=== PATIENT | female | born 1990 | race Caucasian/White ===

== ENCOUNTER → 2021-07-08 15:37 | Outpatient (CLI) | payer OTHER, SELFPAY ==
--- NOTE | 2021-07-08 15:41 | DI.MRI.S_ITS ---
PROCEDURE: MR CERVICAL SPINE WO CON INDICATIONS: ACUTE PAIN OF RIGHT SHOULDER TECHNIQUE: Noncontrast sagittal T1 spin echo and T2 fast spin echo, sagittal STIR, foraminal oblique sagittal T2 fast spin echo, and axial gradient echo or T2 fast spin echo through the cervical spine. COMPARISON: [facility], CR, XR CERVICAL SPINE WITH OBLIQUES, 06/24/2021, 13:02. FINDINGS: Image quality: Excellent. Alignment and Curvature: There is loss of normal cervical lordosis. Bone Marrow: Marrow demonstrates normal overall signal. There is mild reactive signal within the endplates adjacent to the C5-C6 intervertebral disc. Spinal Cord: Visualized spinal cord has normal size and signal. No cerebellar tonsillar herniation. Paraspinous Soft Tissues: No paravertebral masses. Prevertebral soft tissues are normal in thickness. C2-C3: Congenital canal stenosis. Overall mild canal stenosis. No foraminal stenosis. C3-C4: Congenital canal stenosis. Mild disc desiccation. Mild canal stenosis. No foraminal stenosis. C4-C5: Congenital canal stenosis. Mild diffuse disc bulge. Mild facet and uncovertebral hypertrophy bilaterally. There is overall moderate canal stenosis. Mild left greater than right foraminal stenosis. C5-C6: Congenital canal stenosis. Moderate disc desiccation. Mild diffuse disc bulge. Moderate to severe canal stenosis. Minimal cord flattening. Mild left greater than right foraminal stenosis. C6-C7: Congenital canal stenosis. Mild disc desiccation and diffuse disc bulge with superimposed small central protrusion. Mild facet and uncovertebral hypertrophy bilaterally. Moderate to severe canal stenosis. Mild bilateral foraminal stenosis. C7-T1: Normal appearance. IMPRESSION: 1. Diffuse congenital canal stenosis with superimposed disc and facet disease, as well as uncovertebral hypertrophy. 2. Multilevel canal stenoses, worst at C5-C6 and C6-C7 as described above. Minimal cord flattening at C5-C6 is present. 3. Mild multilevel foraminal stenoses. Dictated by: Jhony Grover M.D. on 07/08/2021 at 16:18 Approved by: Jhony Grover M.D. on 07/08/2021 at 16:21
== END ==
PROVIDERS: Referring Provider Physical Medicine & Rehabilitation Pain Medicine; Visit Provider Physical Medicine & Rehabilitation Pain Medicine
DX: M50.221 Other cervical disc displacement at C4-C5 level (principal); M48.02 Spinal stenosis, cervical region; M25.511 Pain in right shoulder
CPT/HCPCS: 72141

== ENCOUNTER → 2021-12-03 12:39 | Outpatient (CLI) | payer OTHER, SELFPAY ==
--- NOTE | 2021-12-03 | DI.MRI.S_ITS ---
PROCEDURE: MR SHOULDER RT WO CON INDICATIONS: Right scapular dyskinesis TECHNIQUE: Noncontrast oblique coronal T2 fast spin echo with fat saturation, oblique sagittal T1 spin echo and T2 fast spin echo with fat saturation, axial T1 spin echo and T2 fast spin echo with fat saturation through the shoulder. COMPARISON: [facility] [place], CR, XR SHOULDER 2+ VIEWS RIGHT, 07/15/2021, 16:04. FINDINGS: Image quality: Excellent. Rotator cuff: The supraspinatus, infraspinatus, and subscapularis tendons appear intact throughout. Sagittal images demonstrate no muscle atrophy. Bones and bursae: No bone marrow contusions or fractures. Mild acromioclavicular joint degeneration. The acromion demonstrates conventional anatomy, without an os acromiale. No pathologic subacromial-subdeltoid or subcoracoid bursal fluid is present. Capsule and soft tissues: Labrum is grossly unremarkable The long head of the biceps tendon demonstrates normal location and morphology. The rotator interval appears normal, without fibrosis. The coracohumeral ligament is normal in thickness. IMPRESSION: 1. No rotator cuff tear. 2. Mild acromioclavicular joint osteoarthritis. Dictated by: Jhony Grover M.D. on 12/03/2021 at 14:27 Approved by: Jhony Grover M.D. on 12/03/2021 at 14:49
== END ==
PROVIDERS: Referring Provider Orthopaedic Surgery; Visit Provider Orthopaedic Surgery
DX: G25.89 Other specified extrapyramidal and movement disorders (principal); M19.011 Primary osteoarthritis, right shoulder
CPT/HCPCS: 73221

== ENCOUNTER → 2021-12-16 09:52 | Outpatient (CLI) | payer OTHER, SELFPAY | PROVIDERS: PCP Family Medicine; Visit Provider Physician Assistant | DX: N89.8 Other specified noninflammatory disorders of vagina (principal) | CPT/HCPCS: 87077; 87086; 87186; 87210 ==

== ENCOUNTER → 2021-12-16 10:04 | Outpatient (ROUT) | payer OTHER, SELFPAY | PROVIDERS: PCP Family Medicine; Visit Provider Physician Assistant | DX: N89.8 Other specified noninflammatory disorders of vagina (principal) | CPT/HCPCS: 87210 ==

== ENCOUNTER → 2022-07-30 09:25 | Outpatient (CLI) | payer OTHER, SELFPAY ==
[2022-07-30 10:17] LABS: Pregnancy Test Urine Negative (Negative)
== END ==
PROVIDERS: PCP Family Medicine; Visit Provider Nurse Practitioner Family
DX: N39.0 Urinary tract infection, site not specified (principal); R30.0 Dysuria
CPT/HCPCS: 81025; 87086

== ENCOUNTER → 2022-07-30 10:41 | Outpatient (CLI) | payer OTHER, SELFPAY ==
[2022-07-30 12:49] LABS: Urine N gonorrhoeae NOT DETECTED
[2022-07-30 13:06] LABS: Urine Chlamydia NOT DETECTED
[2022-07-30 16:13] LABS: Hepatitis B Surface Antigen NEGATIVE s/c (NEGATIVE)
[2022-07-30 16:34] LABS: HIV 1 & 2 Ab/Ag 4th Gen Combo NEGATIVE (NEGATIVE); Hep C Virus Ab w/Reflex Quant NEGATIVE s/c (NEGATIVE)
[2022-07-31 04:09] LABS: HSV 2 IGG AB < 0.91 index (0.00-0.90); HSV1IGG < 0.91 index (0.00-0.90)
[2022-07-31 07:23] LABS: RPR Screen Non Reactive (Non Reactive)
== END ==
PROVIDERS: PCP Family Medicine; Referring Provider Nurse Practitioner Family; Visit Provider Nurse Practitioner Family
DX: N39.0 Urinary tract infection, site not specified (principal); R30.0 Dysuria
CPT/HCPCS: 36415; 81025; 86592; 86695; 86696; 86803; 87086; 87340; 87389; 87491; 87591

== ENCOUNTER → 2023-11-04 17:11 | Outpatient (CLI) | payer OTHER, SELFPAY ==
--- NOTE | 2023-11-04 17:13 | DI.RAD.S_ITS ---
PROCEDURE: XR RIBS RT MIN 3V W CXR 1V INDICATIONS: Right-sided rib pain TECHNIQUE: 2 views of the ribs were acquired, along with a single view chest. COMPARISON: None. FINDINGS: Surgical changes and devices: None. Bones and chest wall: No fractures or dislocations. No suspicious bony lesions. Overlying soft tissues appear unremarkable. Lungs and pleura: No pleural effusions or pneumothorax. Lungs appear clear. Mediastinum: Mediastinal contours appear normal. Heart size is normal. IMPRESSION: No displaced rib fracture or pneumothorax. Dictated by: James Sanchez M.D. on 11/05/2023 at 10:54 Approved by: James Sanchez M.D. on 11/05/2023 at 10:55
== END ==
PROVIDERS: PCP Family Medicine; Referring Provider Nurse Practitioner Family; Visit Provider Nurse Practitioner Family
DX: R07.81 Pleurodynia (principal)
CPT/HCPCS: 71101

== ENCOUNTER → 2024-06-12 19:13 | Outpatient (CLI) | payer OTHER, SELFPAY ==
--- NOTE | 2024-06-12 19:14 | DI.MRI.S_ITS ---
PROCEDURE: MR CERVICAL SPINE WO CON INDICATIONS: SPINAL STENOSIS CERVICAL REGION TECHNIQUE: Noncontrast sagittal T1 spin echo and T2 fast spin echo, sagittal STIR, foraminal oblique sagittal T2 fast spin echo, and axial gradient echo or T2 fast spin echo through the cervical spine. COMPARISON: [facility], MR, MR CERVICAL SPINE WO CON, 07/08/2021, 15:47. FINDINGS: Alignment and Curvature: Straightening of the normal cervical lordosis Bone Marrow: Marrow demonstrates normal overall signal. Spinal Cord: Visualized spinal cord has normal size and signal. No cerebellar tonsillar herniation. Paraspinous Soft Tissues: No paravertebral masses. Prevertebral soft tissues are normal in thickness. C2-C3: Normal appearance. C3-C4: Normal appearance. C4-C5: Normal appearance. C5-C6: Broad-based posterior disc osteophyte complex mild central stenosis. Hypertrophic arthropathy results in mild bilateral foraminal stenosis. C6-C7: Normal appearance. C7-T1: Normal appearance. IMPRESSION: Mild degenerative disc disease without significant central or foraminal stenosis throughout the exam Approved by: Mello Morgan M.D. on 06/13/2024 at 19:45
== END ==
LOC: MRI 19:13
PROVIDERS: Referring Provider Physical Medicine & Rehabilitation Pain Medicine; Visit Provider Physical Medicine & Rehabilitation Pain Medicine
DX: M48.02 Spinal stenosis, cervical region (principal); M50.322 Other cervical disc degeneration at C5-C6 level
CPT/HCPCS: 72141